=== PATIENT | female | born 2000 | race Caucasian/White ===

== ENCOUNTER → 2023-12-12 10:46 | Outpatient (BNVA) | payer MEDICAID, SELFPAY | PROVIDERS: Family Provider Nurse Practitioner Family; PCP Nurse Practitioner Family; Visit Provider Obstetrics & Gynecology | DX: Z36.87 Encounter for antenatal screening for uncertain dates (principal) | CPT/HCPCS: 76817 ==

== ENCOUNTER 2023-12-15 11:34 | Outpatient (CLI) | payer MEDICAID, SELFPAY ==
--- NOTE | 2023-12-15 11:40 | US_ITS ---
WS: [id number] EARLY OBSTETRICAL ULTRASOUND (<14 WEEKS). HISTORY: Z34.01 - Encounter for supervision of normal first pregna... COMPARISON: None available. Single intrauterine gestational sac is identified. Cardiac activity at 161 BPM. [place]-rump length chavez sures 1.7 cm which corresponds to a gestation of 8w1d. Normal-appearing yolk sac and amnion demonstra ramsey. Small subchorionic hemorrhage. Small subchronic hemorrhage along the lower uterine segment measu res 0.8 x 1.1 x 0.9 cm. Trace free fluid. Normal size ovaries with no mass. IMPRESSION: 1. Single intrauterine gestation of 8w1d with an EDC of 07/25/2024. 2. Normal cardiac activity.
== END 2023-12-15 11:35 | disposition home or self-care (01) ==
LOC: RAD 11:35
PROVIDERS: Family Provider Nurse Practitioner Family; PCP Nurse Practitioner Family; Visit Provider Obstetrics & Gynecology
DX: Z34.01 Encounter for supervision of normal first pregnancy, first trimester (principal)
CPT/HCPCS: 76817; 80307; 84315; 85025; 86592; 86762; 86787; 86803; 86850; 86900; 87086; 87340; 87806

== ENCOUNTER → 2023-12-29 08:11 | Outpatient (BNVA) | payer MEDICAID, SELFPAY | PROVIDERS: Family Provider Nurse Practitioner Family; PCP Nurse Practitioner Family; Visit Provider Obstetrics & Gynecology | DX: Z34.01 Encounter for supervision of normal first pregnancy, first trimester (principal) | CPT/HCPCS: 84315; 87491; 87591; 88175 ==

== ENCOUNTER → 2024-02-16 07:53 | Outpatient (BNVA) | payer BC, MEDICAID, SELFPAY | PROVIDERS: Family Provider Nurse Practitioner Family; PCP Nurse Practitioner Family; Visit Provider Nurse Practitioner Women's Health | DX: Z34.01 Encounter for supervision of normal first pregnancy, first trimester (principal) | CPT/HCPCS: 82105; 84315 ==

== ENCOUNTER → 2024-04-05 15:08 | Outpatient (BNVA) | payer BC, MEDICAID, SELFPAY | PROVIDERS: Family Provider Nurse Practitioner Family; PCP Nurse Practitioner Family; Visit Provider Nurse Practitioner Women's Health | DX: Z34.01 Encounter for supervision of normal first pregnancy, first trimester (principal) | CPT/HCPCS: 82950; 84315 ==

== ENCOUNTER 2024-04-21 16:23 | Outpatient (CLI) | payer BC, MEDICAID, SELFPAY ==
[2024-04-21 16:23] VITALS: BMI 29.8
[2024-04-21 16:42] VITALS: PULSE 90; O2SAT 98
[2024-04-21 16:47] VITALS: BP 128/71; PULSE 81; O2SAT 99
[2024-04-21 16:52] VITALS: PULSE 87; O2SAT 89
[2024-04-21 17:02] VITALS: BP 119/72; PULSE 76
== END 2024-04-21 17:20 | disposition home or self-care (01) ==
LOC: OPOB 16:27 → OBGYN 16:28
PROVIDERS: Family Provider Nurse Practitioner Family; PCP Nurse Practitioner Family; Visit Provider Obstetrics & Gynecology
DX: O36.8190 Decreased fetal movements, unspecified trimester, not applicable or unspecified (principal); Z3A.00 Weeks of gestation of pregnancy not specified
CPT/HCPCS: 99211

== ENCOUNTER 2024-05-01 07:14 | Inpatient (IN) | payer BC, MEDICAID, SELFPAY ==
[2024-05-01] VITALS (36 sets, daily range): BP systolic 102–126; BP diastolic 55–85; PULSE 70–92; RESP 15–18; TEMP 36.8–37.3; O2SAT 99
[2024-05-01] MEDS: lactated ringers 1,000 ML 999 ML IV (04:45)
--- NOTE | 2024-05-01 04:58 | PM.PN ---
Subjective Subjective: Anesthesia called at 0434 for STAT Section Arrived at [address] Rice elected for a vaginal delivery given circumstances. Vitals/I&O/Wt Last Vital Signs Pulse 87 05/01/24 04:23 BP 119/85 05/01/24 04:23 Attestations Medical Necessity Statement*: n/a Coding Level of Care Code Acute Code for Chg Fwd
[2024-05-01 05:05] LABS: Basophils % 0.4 %; Eosinophils # 0.2 10^3/uL (0.0-0.8); Eosinophils % 1.7 %; Hematocrit 37.5 % (36-47); Lymphocytes # 2.1 10^3/uL (0.8-4.8); Lymphocytes % 19.5 %; Mean Corpuscular HGB Conc 33.9 g/dL (30-55); Mean Corpuscular Hemoglobin 29.6 pg (27-33); Mean Corpuscular Volume 87.4 fl (85-98); Monocytes # 0.7 10^3/uL (0.2-0.9); Monocytes % 6.8 %; Neutrophils # 7.53 10^3/uL (1.8-7.7); Neutrophils % 71.4 %; Nucleated Red Blood Cells % 0 %; Platelet Count 198 10^3/cmm (157-399); Red Blood Count 4.29 10^6/uL (3.85-5.65); Red Cell Distribution Width 11.8 % (12.1-15.1); White Blood Count 10.55 10^3/uL (3.29-11.43)
--- NOTE | 2024-05-01 05:41 | P.HP_ITS ---
Providers/Chief Complaint 2 Admitting Physician: Kishor Rice MD Primary VICE PRESIDENT EDUCATION: Trung Ac MD Primary Care Provider: EDITH Marquez Chief Complaint: Premature ROM HPI VICE PRESIDENT EDUCATION History of Present Illness 23 y.o. 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 this morning, woke patient from sleep + moderate uterine contractions No bleeding Medications/Allergies Home Medications Medication Instructions Recorded Confirmed Last Taken Type PNV 153-FA 400 mcg-om3 35 mg-dha tab PO 11/21/23 04/05/24 Unknown History 25 mg-epa 5 mg-fish oil chew tablet ( Gummies) dihydroxyaluminum sodium carb 334 334 mg PO DAILY 04/05/24 04/05/24 Unknown History mg chewable tablet famotidine 20 mg tablet (Pepcid) 20 mg PO BID #60 tabs 04/05/24 04/05/24 Unknown Rx Allergies Allergy/AdvReac Type Severity Reaction Status Date / Time Penicillins Allergy Mild ALGY-Hives Verified 04/05/24 14:16 PFSH VICE PRESIDENT EDUCATION 2 PFSH: Medical History No pertinent past medical history neghx:htn,dm,thyroid,dvt/pe PCP: Tessa Gonsalves Surgical History No pertinent past surgical history Family History Mother Diabetes uncertain if T1 orT2 Father Hypertension Denies family history of Colon cancer Ovarian cancer Prostate cancer Heart disease Hyperlipidemia Breast cancer Uterine cancer Thyroid disease Stroke Social History Smoking and tobacco/nicotine status: never used tobacco/nicotine History History History 2 1 Term 0 Miscarriages/Ectopic Living Children Care MARLENY Calculator 2 Estimated Delivery Date Method Current WG Current Estimate 07/23/24 Ultrasound #1 28w 1d Other Estimates 07/09/24 LMP (Certain) 30w 1d Specific Issues/Plans * TRISOMY 18 ON NIPT-- mfm saw her; amnio confirms * MULTIPLE ANOMALIES WITH ONTD POSITIVE * MARLENY CHANGE BASED ON 8 WEEK SONO * LGSIL; repap at PP Vitals/I&O/Wt Last Vital Signs Pulse 82 05/01/24 05:31 BP 123/84 05/01/24 05:26 Pulse Ox 99 05/01/24 05:31 Physical Exam 2 Narrative: General: comfortable, awake, alert, appropriate Abd: soft, nontender Perineum: gross clear amniotic fluid seen Cervix: 1-2 cm / high station Bedside sono by me: heart rate 20-40 per minute Minimal amniotic fluid Data 05/01/24 04:40 Results Labs OB ([facility]): 2 Blood Type O Positive 05/01/24 Antibody Screen Negative 05/01/24 Hct 37.5 % (36-47) 05/01/24 Hgb 12.70 g/dL (11.27-16.99) 05/01/24 Rho(D) Type Rh positive 05/01/24 Plt Count 198 10^3/cmm (157-399) 05/01/24 Hep Bs Antigen Non-reactive (Nonreactive) 12/15/23 Hepatitis C Antibody Non-reactive (Nonreactive) 12/15/23 Rubella IgG Antibody 267.5 IU/mL (0.0-10.0) H 12/15/23 RPR Nonreactive (Nonreactive) 12/15/23 HIV 1&2 Ab & HIV 1 Ag Non-reactive (Non-Reactiv) 12/15/23 C.trachomatis RNA (TMA) Not detected (NOT DETECTED) N.gonorrhoeae RNA (TMA) Not detected (NOT DETECTED) T. vaginalis Amp RNA Not detected (NOT DETECTED) 12/29/23 Chlamydia/GC Comment See note 12/29/23 Glucose 1 Hr 50 gm 75 mg/dL (85-140) L 04/05/24 VZV IgG Antibody 526.00 index 12/15/23 HCG, Qual Positive (Negative) H 11/21/23 Urine Opiates Screen Negative ng/mL (Negative) 12/15/23 Ur Barbiturates Screen Negative ng/mL (Negative) 12/15/23 Ur Phencyclidine Scrn Negative ng/mL (Negative) 12/15/23 Ur Amphetamines Screen Negative ng/mL (Negative) 12/15/23 U Benzodiazepines Scrn Negative ng/mL (Negative) 12/15/23 Urine Cocaine Screen Negative ng/mL (Negative) 12/15/23 U Marijuana (THC) Screen Negative ng/mL (Negative) 12/15/23 Micro Urine Specimen 12/15/23 Pap Smear Interpret See note A 12/29/23 A&P Assessment and plan (1) Chromosomal abnormality in fetus affecting care of mother: 28 w 1 d Fetus with trisomy 18 and multiple anomalies not compatible with life Spontaneous rupture of membranes Severe oligohydramnios Discussed with patient that fetus is not expected to survive in utero and chances of survival after delivery is close to zero Discussed options of delivery vs. non-intervention to allow natural of fetus Explained that even with delivery, baby is not expected to survive outside the Uterus Explained that allowing natural will mean induction of labor with vaginal delivery Patient and her do not want delivery They opted for allowing natural of fetus with induction of labor They inquired about epidural anesthesia for labor Plan is to not perform delivery Will admit Will not monitor fetus Will periodically assess for heart motion Plan labor induction if there no longer heart activity Qualifiers: Fetus number: single or unspecified fetus Qualified Code(s): O35.10X0 - Maternal care for (suspected) chromosomal abnormality in fetus, unspecified, not applicable or unspecified Attestations 2 Medical Necessity Statement*: patient at 28 weeks, fetus with multiple anomalies, presented with spontaneous rupture of membranes Coding Level of Care Code Acute Code for Chg Fwd Diagnoses Chromosomal abnormality in fetus affecting management of mother, single or unspecified fetus O35.10X0 Fetus number: single or unspecified fetus Time Spent (min) 90
--- NOTE | 2024-05-01 07:32 | PC.NURSE ---
This nurse walked into pt room at 0700 to get bedside shift report. Pt was noted to be up to bathroom. This nurse educated pt if she felt like she needed to poop or any pressure in her vagina or bottom, then to press her call light and wait for this nurse to come into room before going to the restroom.
--- NOTE | 2024-05-01 08:10 | P.PN_ITS ---
HUMAN RESOURCES SERVICES SPECIALIST Subjective 2 Subjective: Interval history: Bedside sono by me: no heart motion Finding discussed with patient Patient wants induction of labor Plan IOL with cytotec Labor: Amniotic Membrane Status: Ruptured Vitals/I&O/Wt Last Vital Signs Temp 98.5 F 05/01/24 06:41 Pulse 76 05/01/24 11:47 Resp 18 05/01/24 06:41 BP 116/70 05/01/24 11:47 Pulse Ox 99 05/01/24 05:31 O2 Del Method Room Air 05/01/24 06:41 04/30/24 05/01/24 05/01/24 22:59 06:59 14:59 Intake Total 499.5 / 499.5 Balance 499.5 / 499.5 Weight last 48 hrs Weight 175 lb Data 05/01/24 04:40 Attestations 2 Medical Necessity Statement*: Patient at 28 weeks; fetus with multiple anomalies not compatible with life; now with intrauterine demise Coding Level of Care Code Acute Code for Chg Fwd Time Spent (min) 30
[2024-05-01] MEDS: miSOPROStol 100 mcg tablet VAGINAL ×3 (08:52→14:32)
[2024-05-01] MEDS: fentaNYL 50 mcg/mL INJ 2mL IVP ×5 (12:18→22:44)
--- NOTE | 2024-05-01 23:10 | P.PN_ITS ---
UNIFORM ROOM ATTENDANT Subjective 2 Subjective: Interval history: DELIVERY NOTE , nonviable fetus with multiple gross anatomic anomalies Placenta delivered complete and intact No lacerations EBL: 50 cc No complications Labor: Station: +3 Amniotic Membrane Status: Ruptured Vitals/I&O/Wt Last Vital Signs Temp 98.8 F 05/01/24 23:56 Pulse 80 05/02/24 00:59 Resp 18 05/01/24 19:27 BP 124/77 05/02/24 00:59 Pulse Ox 99 05/01/24 05:31 O2 Del Method Room Air 05/01/24 06:41 Weight last 48 hrs Weight 175 lb Data 05/01/24 04:40 Attestations 2 Medical Necessity Statement*: Patient at 28 weeks; fetus with multiple anomalies not compatible with life; now with intrauterine demise; s/p vaginal delivery Coding Level of Care Code Acute Code for Chg Fwd Time Spent (min) 60
--- NOTE | 2024-05-01 23:15 | PM.DELIVERY ---
Delivery Note: Date of delivery: May 01, 2024 Pre-delivery diagnoses: 28 weeks gestation fetus with trisomy 18 and multiple anomalies not compatible with life spontaneous rupture of membranes spontaneous intrauterine demise Post-delivery diagnoses: 28 weeks gestation fetus with trisomy 18 and multiple anomalies not compatible with life spontaneous rupture of membranes spontaneous intrauterine demise induction of labor vaginal delivery of nonviable fetus with multiple gross anomalies Procedure: induction of labor vaginal delivery Delivering Physician: Kishor Rice MD Estimated blood loss (mL): 50 Findings: , nonviable fetus with multiple gross anatomic anomalies Placenta delivered complete and intact No lacerations EBL: 50 cc No complications Post Delivery Diagnoses: neural tube defect affecting : Qualifiers: Fetus number: single or unspecified fetus Qualified Code(s): O35.00X0 - Maternal care for (suspected) central nervous system malformation or damage in fetus, unspecified, not applicable or unspecified Chromosomal abnormality in fetus affecting care of mother: Qualifiers: Fetus number: single or unspecified fetus Qualified Code(s): O35.10X0 - Maternal care for (suspected) chromosomal abnormality in fetus, unspecified, not applicable or unspecified Delivery: vaginal Post-Delivery Status: good History History History 1 Term 0 Miscarriages/Ectopic Living Children A&P Assessment and plan (1) neural tube defect affecting : Qualifiers: Fetus number: single or unspecified fetus Qualified Code(s): O35.00X0 - Maternal care for (suspected) central nervous system malformation or damage in fetus, unspecified, not applicable or unspecified (2) Chromosomal abnormality in fetus affecting care of mother: Qualifiers: Fetus number: single or unspecified fetus Qualified Code(s): O35.10X0 - Maternal care for (suspected) chromosomal abnormality in fetus, unspecified, not applicable or unspecified Coding Level of Care Code Acute Code for Chg Fwd Diagnoses neural tube defect affecting , single or unspecified fetus O35.00X0 Fetus number: single or unspecified fetus Chromosomal abnormality in fetus affecting management of mother, single or unspecified fetus O35.10X0 Fetus number: single or unspecified fetus Time Spent (min) 20
[2024-05-02] VITALS (19 sets, daily range): BP systolic 106–144; BP diastolic 56–91; PULSE 67–90; RESP 16; TEMP 36.1–36.6
[2024-05-02] MEDS: carboprost tromethamine 250 mcg/mL Amp IM (00:03)
[2024-05-02] MEDS: ibuprofen 800 mg tablet PO ×2 (00:41→09:30)
[2024-05-02] MEDS: HYDROcodone-acetaminophen 5-325 mg Tablet PO ×2 (00:41→13:07)
--- NOTE | 2024-05-02 05:45 | PC.NURSE ---
Patient stated that she wanted to donate the body of baby to science. pond supervisor made aware of this and gave some resources to the patient. Upon further research, body donation to science is set up by the family and there is some pre-planning required by the family. This new information was shared with the patient and family, they all verbalized understanding. [facility] was notified via dye house wheel operator and they did not provide any resources for this matter. The dye house wheel operator did share some other options with patient about body disposition and also let it be known a decision did not have to be made right now and the [place] can [place] [facility] [place]. The baby's body remained at bedside at this time.
--- NOTE | 2024-05-02 06:45 | PC.NURSE ---
Patient stated she was ready for the baby's body to go to the [facility]. The baby was removed from the room, in the bassinet with the cuddle cot and taken to the nursery and placed in the demise casket with ice. The house calls nurse was requested [place] [facility] [place]
[2024-05-02] MEDS: PRENATAL VIT NO.130/IRON/FOLIC 1 EACH TABLET PO (09:30)
[2024-05-02] MEDS: docusate sodium 100 mg Capsule PO (09:30)
[2024-05-02 11:01] LABS: Hematocrit 38.9 % (36-47); Mean Corpuscular HGB Conc 33.9 g/dL (30-55); Mean Corpuscular Hemoglobin 29.4 pg (27-33); Mean Corpuscular Volume 86.6 fl (85-98); Mean Platelet Volume 11.9 fL (7.4-10.4); Platelet Count 195 10^3/cmm (157-399); Red Blood Count 4.49 10^6/uL (3.85-5.65); Red Cell Distribution Width 11.7 % (12.1-15.1); White Blood Count 14.04 10^3/uL (3.29-11.43)
== END 2024-05-02 13:30 | disposition home or self-care (01) | DRG 806 ==
LOC: OPOB 07:15 → OBGYN 07:15
PROVIDERS: Admitting Provider Obstetrics & Gynecology; Family Provider Nurse Practitioner Family; PCP Nurse Practitioner Family; Visit Provider Obstetrics & Gynecology
DX: O35.10X0 Maternal care for (suspected) chromosomal abnormality in fetus, unspecified, not applicable or unspecified (principal); O36.4XX0 Maternal care for intrauterine death, not applicable or unspecified; Z37.1 Single stillbirth; O41.03X0 Oligohydramnios, third trimester, not applicable or unspecified; Z3A.28 28 weeks gestation of pregnancy; O35.00X0 Maternal care for (suspected) central nervous system malformation or damage in fetus, unspecified, not applicable or unspecified
CPT/HCPCS: 36415; 59025; 59409; 83986; 85025; 85027; 86850; 86900; 96372; 99211; J3010; J7120

== ENCOUNTER → 2024-07-12 08:35 | Outpatient (BNVA) | payer BC, MEDICAID, SELFPAY | PROVIDERS: Family Provider Nurse Practitioner Family; PCP Nurse Practitioner Family; Visit Provider Nurse Practitioner Women's Health | DX: N92.6 Irregular menstruation, unspecified (principal) | CPT/HCPCS: 84702 ==

== ENCOUNTER → 2024-07-17 13:25 | Outpatient (BNVA) | payer BC, MEDICAID, SELFPAY | PROVIDERS: Family Provider Nurse Practitioner Family; PCP Nurse Practitioner Family; Visit Provider Obstetrics & Gynecology | DX: Z36.87 Encounter for antenatal screening for uncertain dates (principal); Z3A.01 Less than 8 weeks gestation of pregnancy | CPT/HCPCS: 76817 ==

== ENCOUNTER → 2024-07-31 15:22 | Outpatient (BNVA) | payer BC, MEDICAID, SELFPAY | PROVIDERS: Family Provider Nurse Practitioner Family; PCP Nurse Practitioner Family; Visit Provider Nurse Practitioner Women's Health | DX: Z36.87 Encounter for antenatal screening for uncertain dates (principal); Z3A.01 Less than 8 weeks gestation of pregnancy | CPT/HCPCS: 76801 ==

== ENCOUNTER → 2024-08-20 13:54 | Outpatient (BNVA) | payer BC, MEDICAID, SELFPAY | PROVIDERS: Family Provider Nurse Practitioner Family; PCP Nurse Practitioner Family; Visit Provider Nurse Practitioner Women's Health | DX: O09.899 Supervision of other high risk pregnancies, unspecified trimester (principal); O09.299 Supervision of pregnancy with other poor reproductive or obstetric history, unspecified trimester; R87.612 Low grade squamous intraepithelial lesion on cytologic smear of cervix (LGSIL); Z87.59 Personal history of other complications of pregnancy, childbirth and the puerperium; L73.9 Follicular disorder, unspecified | CPT/HCPCS: 80307; 84315; 85025; 86592; 86762; 86803; 86850; 86900; 87086; 87340; 87806 ==

== ENCOUNTER → 2024-09-13 10:01 | Outpatient (BNVA) | payer BC, MEDICAID, SELFPAY | PROVIDERS: Family Provider Nurse Practitioner Family; PCP Nurse Practitioner Family; Visit Provider Obstetrics & Gynecology | DX: O09.899 Supervision of other high risk pregnancies, unspecified trimester (principal) | CPT/HCPCS: 84315; 87491; 87591; 87661 ==

== ENCOUNTER → 2024-10-31 09:09 | Outpatient (BNVA) | payer BC, MEDICAID, SELFPAY | PROVIDERS: Family Provider Nurse Practitioner Family; PCP Nurse Practitioner Family; Visit Provider Obstetrics & Gynecology | DX: O09.899 Supervision of other high risk pregnancies, unspecified trimester (principal) | CPT/HCPCS: 76805 ==

== ENCOUNTER → 2024-11-07 12:38 | Outpatient (BNVA) | payer BC, MEDICAID, SELFPAY | PROVIDERS: Family Provider Nurse Practitioner Family; PCP Nurse Practitioner Family; Visit Provider Obstetrics & Gynecology | DX: Z87.59 Personal history of other complications of pregnancy, childbirth and the puerperium (principal); L73.9 Follicular disorder, unspecified; O09.299 Supervision of pregnancy with other poor reproductive or obstetric history, unspecified trimester; O09.899 Supervision of other high risk pregnancies, unspecified trimester; R87.612 Low grade squamous intraepithelial lesion on cytologic smear of cervix (LGSIL) | CPT/HCPCS: 84315 ==

== ENCOUNTER → 2024-11-29 10:12 | Outpatient (BNVA) | payer BC, MEDICAID, SELFPAY | PROVIDERS: Family Provider Nurse Practitioner Family; PCP Nurse Practitioner Family; Visit Provider Nurse Practitioner Women's Health | DX: Z87.59 Personal history of other complications of pregnancy, childbirth and the puerperium (principal); O09.899 Supervision of other high risk pregnancies, unspecified trimester; L73.9 Follicular disorder, unspecified; O09.299 Supervision of pregnancy with other poor reproductive or obstetric history, unspecified trimester; R87.612 Low grade squamous intraepithelial lesion on cytologic smear of cervix (LGSIL) | CPT/HCPCS: 82950; 84315 ==

== ENCOUNTER → 2024-12-26 13:27 | Outpatient (BNVA) | payer BC, MEDICAID, SELFPAY | PROVIDERS: Family Provider Nurse Practitioner Family; PCP Nurse Practitioner Family; Visit Provider Obstetrics & Gynecology | DX: O09.899 Supervision of other high risk pregnancies, unspecified trimester (principal) | CPT/HCPCS: 76816; 84315; 85025 ==

== ENCOUNTER → 2025-01-10 09:54 | Outpatient (BNVA) | payer BC, MEDICAID, SELFPAY | PROVIDERS: Family Provider Nurse Practitioner Family; PCP Nurse Practitioner Family; Visit Provider Nurse Practitioner Women's Health | DX: O09.899 Supervision of other high risk pregnancies, unspecified trimester (principal); O99.019 Anemia complicating pregnancy, unspecified trimester; R87.612 Low grade squamous intraepithelial lesion on cytologic smear of cervix (LGSIL); O09.299 Supervision of pregnancy with other poor reproductive or obstetric history, unspecified trimester; Z87.59 Personal history of other complications of pregnancy, childbirth and the puerperium; O36.63X0 Maternal care for excessive fetal growth, third trimester, not applicable or unspecified; K21.9 Gastro-esophageal reflux disease without esophagitis; O99.013 Anemia complicating pregnancy, third trimester | CPT/HCPCS: 84315; 87624 ==

== ENCOUNTER → 2025-01-23 08:21 | Outpatient (BNVA) | payer BC, MEDICAID, SELFPAY | PROVIDERS: Family Provider Nurse Practitioner Family; PCP Nurse Practitioner Family; Visit Provider Nurse Practitioner Women's Health | DX: O09.899 Supervision of other high risk pregnancies, unspecified trimester (principal) | CPT/HCPCS: 76816; 84315 ==

== ENCOUNTER → 2025-02-07 13:45 | Outpatient (BNVA) | payer BC, MEDICAID, SELFPAY | PROVIDERS: Family Provider Nurse Practitioner Family; PCP Nurse Practitioner Family; Visit Provider Nurse Practitioner Women's Health | DX: O09.899 Supervision of other high risk pregnancies, unspecified trimester (principal); O99.013 Anemia complicating pregnancy, third trimester; O09.299 Supervision of pregnancy with other poor reproductive or obstetric history, unspecified trimester; Z87.59 Personal history of other complications of pregnancy, childbirth and the puerperium; R87.612 Low grade squamous intraepithelial lesion on cytologic smear of cervix (LGSIL); O36.63X0 Maternal care for excessive fetal growth, third trimester, not applicable or unspecified; K21.9 Gastro-esophageal reflux disease without esophagitis | CPT/HCPCS: 84315; 85025 ==

== ENCOUNTER → 2025-02-19 12:28 | Outpatient (BNVA) | payer BC, MEDICAID, SELFPAY | PROVIDERS: Family Provider Nurse Practitioner Family; PCP Nurse Practitioner Family; Visit Provider Nurse Practitioner Women's Health | DX: O09.899 Supervision of other high risk pregnancies, unspecified trimester (principal); Z36.9 Encounter for antenatal screening, unspecified | CPT/HCPCS: 76816; 84315; 87081 ==

== ENCOUNTER → 2025-02-27 07:50 | Outpatient (BNVA) | payer BC, MEDICAID, SELFPAY | PROVIDERS: Family Provider Nurse Practitioner Family; PCP Nurse Practitioner Family; Visit Provider Obstetrics & Gynecology | DX: O09.899 Supervision of other high risk pregnancies, unspecified trimester (principal) | CPT/HCPCS: 84315 ==

== ENCOUNTER → 2025-03-05 10:26 | Outpatient (BNVA) | payer BC, MEDICAID, SELFPAY | PROVIDERS: Family Provider Nurse Practitioner Family; PCP Nurse Practitioner Family; Visit Provider Nurse Practitioner Women's Health | DX: O09.899 Supervision of other high risk pregnancies, unspecified trimester (principal) | CPT/HCPCS: 84315 ==

== ENCOUNTER 2025-03-13 00:05 | Inpatient (IN) | payer BC, MEDICAID, SELFPAY ==
[2025-03-12] VITALS (7 sets, daily range): BP systolic 118–150; BP diastolic 67–92; PULSE 82–100; BMI 35.3
[2025-03-13] VITALS (110 sets, daily range): BP systolic 104–138; BP diastolic 51–85; PULSE 74–157; RESP 15–18; TEMP 35.5–36.7; O2SAT 97–100
[2025-03-13 00:33] LABS: Basophils % 0.2 %; Eosinophils # 0.2 10^3/uL (0.0-0.8); Eosinophils % 1.1 %; Hematocrit 41.7 % (36-47); Lymphocytes # 1.8 10^3/uL (0.8-4.8); Lymphocytes % 11.4 %; Mean Corpuscular HGB Conc 33.1 g/dL (30-55); Mean Corpuscular Hemoglobin 28.3 pg (27-33); Mean Corpuscular Volume 85.5 fl (85-98); Mean Platelet Volume 11.5 fL (7.4-10.4); Neutrophils # 12.86 10^3/uL (1.8-7.7); Nucleated Red Blood Cells % 0 %; Platelet Count 174 10^3/cmm (157-399); Red Blood Count 4.88 10^6/uL (3.85-5.65); Red Cell Distribution Width 17.7 % (12.1-15.1); White Blood Count 16.09 10^3/uL (3.29-11.43)
--- NOTE | 2025-03-13 00:45 | P.HP_ITS ---
Providers/Chief Complaint 2 Admitting Physician: Kishor Rice MD Primary Care Provider: EDITH Marquez Chief Complaint: CTX HPI CUSTOMER ACQUISITION MANAGER History of Present Illness Tc Rai is a 24 year old female L0 EDC March 16, 2025 At 39 w 4 d No complications Presents to L&D c/o painful uterine contractions No bleeding or fluid leakage + active movements POBHx: at 28 weeks of non-viable fetus with multiple anomalies 05-01-24 Present Details : 2 Para: 1 Labs Rubella: Immune RPR: Negative GBS: Negative Medications/Allergies Home Medications ?Medication ?Instructions ?Recorded ?Confirmed ?Last Taken ?Type PNV 153-FA 400 mcg-om3 35 mg-dha 400 tab PO DAILY 11/0903/05/25 Unknown History 25 mg-epa 5 mg-fish oil chew tablet ( Gummies) loratadine 10 mg tablet (Claritin) 10 mg PO DAILY 04/0103/05/25 Unknown History ferrous sulfate 325 mg (65 mg 325 mg PO BID #60 tabs 0 01/10/25 03/05/25 Unknown Rx iron) tablet omeprazole 40 mg capsule,delayed 40 mg PO DAILY #90 ca ps 01/10/25 03/05/25 Unknown Rx release hydrocortisone 2.5 % topical cream 1 applic [place] .qid pr n PRN 02/19/25 03/05/25 Unknown Rx with perineal applicator hemorrhoids #30 grams (Procto-Med HC) Allergies Allergy/AdvReac Type Severity Reaction Status Date / Time Penicillins Allergy Mild ALGY-Hives Verified 03/05/25 10:29 PFSH CUSTOMER ACQUISITION MANAGER 2 PFSH: Medical History neural tube defect affecting Chromosomal abnormality in fetus affecting care of mother No pertinent past medical history neghx:htn,dm,thyroid,dvt/pe PCP: Tessa Gonsalves Surgical History No pertinent past surgical history Family History Mother Diabetes uncertain if T1 orT2 Father Hypertension Denies family history of Colon cancer Ovarian cancer Prostate cancer Heart disease Hyperlipidemia Breast cancer Uterine cancer Thyroid disease Stroke Social History Smoking and tobacco/nicotine status: never used tobacco/nicotine History History History 2 2 Term 0 1 Miscarriages/Ectopic 0 Living Children 0 Care MARLENY Calculator 2 Estimated Delivery Date Method Current WG Current Estimate 03/16/25 LMP (Certain) 39w 5d Other Estimates 03/18/25 Ultrasound #1 39w 3d Specific Issues/Plans * PREVIOUS CHILD WITH TRISOMY 13,18--low risk NIPT * HX IUFD AT 24 WEEKS; secondary to anomaly * 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); repeat pap at 30 weeks performed * ANEMIA-at 28 weeks hemoglobin 10.3--started iron twice daily at 30 weeks; reassess at 34-36 weeks * GERD-no improvement with twice daily Pepcid; switch to omeprazole at 30 weeks Vitals/I&O/Wt Last Vital Signs Temp 98.1 F 03/13/25 21:30 Pulse 87 03/14/25 01:36 Resp 14 03/14/25 01:36 BP 148/70 03/14/25 01:36 Pulse Ox 97 03/14/25 01:36 O2 Del Method Room Air 03/14/25 01:36 03/13/25 03/13/25 03/14/25 14:59 22:59 06:59 Intake Total 691.667 / 040.397 0437.5 / 2236.167 Output Total 200 / 200 Balance 691.667 / 830.561 3493.5 / 2036.167 Weight last 48 hrs Weight 206 lb Physical Exam 2 Narrative: Weight 206 lbs; 5?4? VS normal General awake, alert Lungs: clear Cor: RRR Abd: nontender Cervix: 2-3 cm / 75% / -3 / cephalic Ext: no edema External monitor: regular uterine contractions heart tracing good variability, + accelerations Urinary Catheter Management: [place] Latex: Cath Placed During This Visit: yes, but has since been removed by the nurse Reason for Continuing Indwelling Catheter: Other Urinary Catheter Date of Insertion: 03/13/25 Urinary Catheter Time of Insertion: 07:45 Date Urinary Catheter Removed: 03/13/25 Time Urinary Catheter Discontinued: 17:25 Data 03/13/25 00:22 Results Labs OB ([facility]): 2 Obstetrics US 02/19/25 Blood Type O Positive 03/13/25 Antibody Screen Negative 03/13/25 Hct, (36-47) 41.7 % 03/13/25 Hgb, (11.27-16.99) 13.80 g/dL 03/13/25 Rho(D) Type Rh positive 03/13/25 Plt Count, (157-399) 174 10^3/cmm 03/13/25 Hep Bs Antigen, (Nonreactive) Non-reactive 08/20/24 Hepatitis C Antibody, (Nonreactive) Non-reactive 08/09 12/02 Rubella IgG Antibody, (0.0-10.0) 261.1 IU/mL H 4 RPR, (Nonreactive) Nonreactive 08/20/24 HIV 1&2 Ab & HIV 1 Ag, (Non-Reactiv) Non-reactive 10/01 C.trachomatis RNA (TMA), (NOT DETECTED) Not detected 12/29/23 N.gonorrhoeae RNA (TMA), (NOT DETECTED) Not detected 12/29/23 T. vaginalis Amp RNA, (NOT DETECTED) Not detected Chlamydia/GC Comment See note 12/29/23 Glucose 1 Hr 50 gm, (85-140) 81 mg/dL L 11/29/24 VZV IgG Antibody 526.00 index 12/15/23 Ser , Semi-Qnt 3203.00 mIU/mL 07/12/24 HCG, Qual, (Negative) Positive H 11/21/23 Urine Opiates Screen, (Negative) Negative ng/mL 4 Ur Barbiturates Screen, (Negative) Negative ng/mL 08/20 Ur Phencyclidine Scrn, (Negative) Negative ng/mL Ur Amphetamines Screen, (Negative) Negative ng/mL 08/20 U Benzodiazepines Scrn, (Negative) Negative ng/mL 08/20 Urine Cocaine Screen, (Negative) Negative ng/mL 4 U Marijuana (THC) Screen, (Negative) Negative ng/mL 10/01 Micro Urine Specimen 08/20/24 Pap Smear Interpret See note A 01/10/25 A&P Assessment and plan (1) Active labor at term: 39 w 4 d Painful uterine contractions Fetus reassuring Plan admit Labor management Plan Pitocin augmentation if needed PDMP PDMP Reviewed: Not Reviewed Attestations 2 Medical Necessity Statement*: patient at 39 w 4 d with active labor Coding Level of Care Code Acute Code for Chg Fwd Diagnoses Active labor at term
[2025-03-13] MEDS: oxytocin 30 UNIT/500 ML BAG IV (02:47)
[2025-03-13] MEDS: fentaNYL 50 mcg/mL INJ 2mL IVP ×2 (02:47→04:42)
[2025-03-13] MEDS: dextrose 5%-lactated ringers 1,000 ML 125 ML IV ×2 (03:23→10:58)
[2025-03-13] MEDS: lactated ringers 1,000 ML 999 ML IV (04:44)
--- NOTE | 2025-03-13 06:51 | P.ANESASSM_ITS ---
Pre-Anesthetic Assessment Height/Weight: Height 1.63 m Weight 93.44 kg Temp Pulse Resp BP Pulse Ox O2 Del Method 96.1 F L 91 16 113/59 99 Room Air 03/13/25 00:47 03/13/25 06:44 03/13/25 04:42 03/13/25 05:05 03/13/25 06:44 03/13/25 00:19 Preop Diagnosis: intrauterine labor epidural Familial anesthetic complications: none Was Beta Jose taken within 24 hours: N/A Was Clonidine taken within 24 hours: N/A Social No alcohol and No tobacco Exam alert, oriented x 3 and clear to auscultation bilaterally Airway Mallampati: Class III Dentition: full History/ROS No significant history except as noted Pulmonary None reported CV/HEM None reported None reported Hepatic None reported GI Gastroesophageal Reflux Disease Metabolic None reported Musc/skel None reported Neuropsych None reported Anesthetic Plan ASA status: 2 Anesthesia: Anesthesia Evaluation and Regional (specify below) Medications/Allergies Home Medications ?Medication ?Instructions ?Recorded ?Confirmed ?Last Taken ?Type PNV 153-FA 400 mcg-om3 35 mg-dha 400 tab PO DAILY 11/0903/05/25 Unknown History 25 mg-epa 5 mg-fish oil chew tablet ( Gummies) loratadine 10 mg tablet (Claritin) 10 mg PO DAILY 04/0103/05/25 Unknown History ferrous sulfate 325 mg (65 mg 325 mg PO BID #60 tabs 0 01/10/25 03/05/25 Unknown Rx iron) tablet omeprazole 40 mg capsule,delayed 40 mg PO DAILY #90 ca ps 01/10/25 03/05/25 Unknown Rx release hydrocortisone 2.5 % topical cream 1 applic [place] .qid pr n PRN 02/19/25 03/05/25 Unknown Rx with perineal applicator hemorrhoids #30 grams (Procto-Med HC) Allergies Allergy/AdvReac Type Severity Reaction Status Date / Time Penicillins Allergy Mild ALGY-Hives Verified 03/05/25 10:29 Current Medications Generic Name Dose Route Start Last Admin Trade Name Freq PRN Reason Stop Dose Admin Fentanyl 25 - 100 mcg 03/13/25 02:12 03/13/25 04:42 Fentanyl 50 Mcg/Ml Inj 2ml IVP 50 mcg Q1H PRN Administration SEVERE PAIN Dextrose/Lactated Ringer's 1,000 mls @ 125 mls/hr 03/13/25 00:15 03/13/25 05:50 Dextrose 5%-Lactated Ringers IV 125 mls/hr .Q8H CECILY Infusion Lactated Ringer's 1,000 mls @ 999 mls/hr 03/13/25 00:27 03/13/25 05:50 Lactated Ringers IV Infused .Q1H1M PRN Infusion See label comments Oxytocin 30 unit in 500 mls @ 1 mls/hr 03/13/25 02:15 03/13/25 05:50 Pitocin IV 3 milliunit/min .Q24H CECILY 3 mls/hr Protocol Titration 1 MILLIUNIT/MIN PFSH Anesthesia Medical History neural tube defect affecting Chromosomal abnormality in fetus affecting care of mother No pertinent past medical history neghx:htn,dm,thyroid,dvt/pe PCP: Tessa Gonsalves Surgical History No pertinent past surgical history Family History Mother Diabetes uncertain if T1 orT2 Father Hypertension Denies family history of Colon cancer Ovarian cancer Prostate cancer Heart disease Hyperlipidemia Breast cancer Uterine cancer Thyroid disease Stroke Social History Smoking and tobacco/nicotine status: never used tobacco/nicotine Female Reproductive History : 2 Data Anesthesia 03/13/25 00:22 Short CBC 03/13/25 Range/Units 00:22 WBC 16.09 H (3.29-11.43) 10^3/uL Hgb 13.80 (11.27-16.99) g/dL Hct 41.7 (36-47) % MCV 85.5 (85-98) fl Plt Count 174 (157-399) 10^3/cmm Neut % (Auto) 80.0 % Neut # (Auto) 12.86 H (1.8-7.7) 10^3/uL Blood Bank 03/13/25 00:22 Blood Type O Positive Rho(D) Type Rh positive Antibody Screen Negative Anesthesia Procedures Epidural Time Out Performed: Yes Consents Signed: Procedure Consent Consent: requested by attending/covering physician, from patient, risks and benefits reviewed and patient agrees to proceed Lumbar Level: L4-L5 Epidural position: sitting Epidural procedure: sterile prep of area, 1% lidocaine to numb the area, 18 g needle, negative for paresthesia passed, neg for paresthesia, test dose given, 1.5% xylocaine 1:200k epi, 0.2% Ropivacaine bolus ml (5), placed PCEA, no systemic response, sterile dressing applied, L.U.D. no apparent complications and 0.2% Ropiavacaine @ mls/hr (10) Additional Comments: ANTONIETTA 6cm, catheter easily threaded to 5cm in the space. VS monitored throughout and remained stable. Pt educated on ABSEILING INSTRUCTOR and reports adequate analgesia with epidural
[2025-03-13] MEDS: alum-mag-hydroxide-sime 30 mL UDC PO (10:58)
[2025-03-13] MEDS: ROPivacaine syringe 100 MG/50 ML SYRINGE 10 MG EPIDURAL ×2 (11:00→14:58)
--- NOTE | 2025-03-13 18:35 | PM.DELIVERY ---
Delivery Note: Date of delivery: March 13, 2025 Pre-delivery diagnoses: 39 w 4 d painful uterine contractions Post-delivery diagnoses: 39 w 4 d active labor labor augmentation vacuum-assisted vaginal delivery repair of third-degree perineal laceration Procedure: labor augmentation vacuum-assisted vaginal delivery repair of third-degree perineal laceration Op report anesthesia: Epidural Delivering Physician: Kishor Rice MD Estimated blood loss (mL): 300 Findings: Patient complete head ORSAURA, +2 - +3 station Poor pushing efforts, + maternal exhaustion Vacuum applied Mild traction used through three uterine contractions Brought head to perineum Shoulders delivered easily Vigorous male infant Cord gases and blood obtained Normal placenta and cord No episiotomy Third-degree perineal laceration repaired in layers EBL: 300 cc No complications Pre-Delivery Course: normal labor course fetus reassuring throughout Delivery: vacuum-assisted vaginal delivery Post-Delivery Status: good History History History 2 Term 0 1 Miscarriages/Ectopic 0 Living Children 0 A&P Assessment and plan (1) Vaginal delivery: PDMP PDMP Reviewed: Not Reviewed Coding Level of Care Code Acute Code for Chg Fwd Diagnoses Vaginal delivery O80
[2025-03-13] MEDS: ibuprofen 800 mg tablet PO (20:43)
[2025-03-14 01:36] VITALS: BP 148/70; PULSE 87; RESP 14; O2SAT 97
[2025-03-14 05:31] VITALS: BP 115/76; PULSE 80; RESP 16; O2SAT 97
[2025-03-14] MEDS: HYDROcodone-acetaminophen 5-325 mg Tablet PO (06:25)
[2025-03-14 06:45] LABS: Hematocrit 38.2 % (36-47); Mean Corpuscular Hemoglobin 28.5 pg (27-33); Mean Corpuscular Volume 86.4 fl (85-98); Platelet Count 161 10^3/cmm (157-399); Red Blood Count 4.42 10^6/uL (3.85-5.65); Red Cell Distribution Width 18.1 % (12.1-15.1)
--- NOTE | 2025-03-14 08:05 | ANE.PACU2 ---
Inpatient post-anesthesia follow up: Airway intact: Yes Vital signs: Temperature 98.0 F Pulse Rate 94 Respiratory Rate 18 Blood Pressure 136/84 Pulse Oximetry 98 Oxygen Delivery Me thod Room Air Oxygen Flow Rate Fraction of Inspir ed Oxygen Hydration adequate: Yes Nausea and vomiting: No Pain level: 1 Mental status: Baseline Epidural Start/End: Epidural Start Date: 03/13/25 Epidural Start Time: 06:41 Epidural End Date: 03/13/25 Epidural End Time: 18:44
[2025-03-14] MEDS: docusate sodium 100 mg Capsule PO ×2 (08:56→15:02)
[2025-03-14] MEDS: calcium carbonate 500 mg Chew Tablet 1000 MG PO (08:56)
[2025-03-14] MEDS: ibuprofen 800 mg tablet PO ×3 (08:56→20:15)
[2025-03-14] MEDS: PRENATAL VIT NO.130/IRON/FOLIC 1 EACH TABLET PO (08:56)
[2025-03-14 11:30] VITALS: BP 120/70; PULSE 75; RESP 18; TEMP 36.4
--- NOTE | 2025-03-14 11:48 | PC.NURSE ---
TOOK OVER PATIENT CARE AROUND [id number] FROM THADDEUS ALARCON RN.
--- NOTE | 2025-03-14 13:05 | PM.OBGYPN ---
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 fundus firm Ext: no edema; nontender Urinary Catheter Management: Oakes Latex: Cath Placed During This Visit: yes, but has since been removed by the nurse Reason for Continuing Indwelling Catheter: Other Urinary Catheter Date of Insertion: 03/13/25 Urinary Catheter Time of Insertion: 07:45 Date Urinary Catheter Removed: 03/13/25 Time Urinary Catheter Discontinued: 17:25 Data 03/14/25 05:52 A&P Assessment and plan (1) Vaginal delivery: PPD #1 vacuum-assisted vaginal delivery, repair of third-degree perineal laceration doing well normal course continue care PDMP PDMP Reviewed: Not Reviewed Attestations Medical Necessity Statement*: patient s/p vaginal delivery, for care Coding Level of Care Code Acute Code for Chg Fwd Diagnoses Vaginal delivery O80
--- NOTE | 2025-03-14 13:49 | PC.NURSE ---
HELPED HER WITH LATCH, SHE IS DOING VERY GOOD JUST HAD TO DO A LITTLE READJUSTMENT.
[2025-03-14 17:00] VITALS: BP 121/79; PULSE 74; RESP 16; TEMP 36.3
[2025-03-14 20:17] VITALS: BP 115/79; PULSE 80; RESP 15; TEMP 36.4; O2SAT 98
[2025-03-15 06:07] VITALS: BP 126/66; PULSE 83; RESP 16; TEMP 36.6; O2SAT 98
[2025-03-15 07:34] VITALS: BP 126/84; PULSE 74; RESP 18; TEMP 36.5
[2025-03-15] MEDS: PRENATAL VIT NO.130/IRON/FOLIC 1 EACH TABLET PO (08:48)
[2025-03-15] MEDS: docusate sodium 100 mg Capsule PO (08:48)
[2025-03-15] MEDS: ibuprofen 800 mg tablet PO (08:48)
[2025-03-15 11:45] VITALS: BP 136/84; PULSE 94; RESP 18; TEMP 36.7
--- NOTE | 2025-03-15 12:54 | PM.OBGYDC ---
Discharge Providers ORTHOPHOTO TECH/DRAFTSMAN Date of Admission: 03/13/25 00:05 Date of Discharge: 03/15/25 Attending Provider at Admission: Kishor Rice MD Attending Provider at Discharge: Kishor Rice MD Consults: none Primary ORTHOPHOTO TECH/DRAFTSMAN: Kishor Rice MD Primary Care Provider: EDITH Marquez Diagnoses at Discharge Discharge Diagnosis (1) Vaginal delivery: Details from hospital stay: 24 y.o. L0 at 39 w 4 d no complications presented c/o painful uterine contractions cervix on admission was 3 cm patient received pitocin augmentation proceeded to complete dilatation fetus was reassuring throughout Vacuum-assisted vaginal delivery with repair of third-degree perineal laceration was performed patient did well had no complications patient was discharged to home on the second day Status: Acute Reason for Visit Reason for Visit: CTX Brief History: 24 y.o. L0 at 39 w 4 d no complications presented c/o painful uterine contractions Hospital Course Hospital Course 24 y.o. L0 at 39 w 4 d no complications presented c/o painful uterine contractions cervix on admission was 3 cm patient received pitocin augmentation proceeded to complete dilatation fetus was reassuring throughout Vacuum-assisted vaginal delivery with repair of third-degree perineal laceration was performed patient did well had no complications patient was discharged to home on the second day Information Peripartum Data: Infant Delivery Method: Vaginal Laceration description: Perineal - 3rd Degree Episiotomy description: None complications: none Physical Exam Narrative: afebrile, VS normal comfortable, awake, alert Lungs: clear Cor: RRR Abd: soft, nontender. fundus firm Ext: no edema; nontender Urinary Catheter Management: Oakes Latex: Cath Placed During This Visit: yes, but has since been removed by the nurse Reason for Continuing Indwelling Catheter: Other Urinary Catheter Date of Insertion: 03/13/25 Urinary Catheter Time of Insertion: 07:45 Date Urinary Catheter Removed: 03/13/25 Time Urinary Catheter Discontinued: 17:25 History History History 2 Term 0 1 Miscarriages/Ectopic 0 Living Children 0 Discharge Data Studies Completed and Pending Pending at discharge Category Date Time Status High Risk PP Hemorrhage Stat Lab 03/13/25 18:28 Received Laboratory Results WBC 19.80 10^3/uL (3.29-11.43) H 03/14/25 05:52 RBC 4.42 10^6/uL (3.85-5.65) 03/14/25 05:52 Hgb 12.60 g/dL (11.27-16.99) 03/14/25 05:52 Hct 38.2 % (36-47) 03/14/25 05:52 MCV 86.4 fl (85-98) 03/14/25 05:52 MCH 28.5 pg (27-33) 03/14/25 05:52 MCHC 33.0 g/dL (30-55) 03/14/25 05:52 RDW 18.1 % (12.1-15.1) H 03/14/25 05:52 Plt Count 161 10^3/cmm (157-399) 03/14/25 05:52 MPV 12.0 fL (7.4-10.4) H 03/14/25 05:52 Neut % (Auto) 80.0 % 03/13/25 00:22 Lymph % (Auto) 11.4 % 03/13/25 00:22 [place] % (Auto) 6.0 % 03/13/25 00:22 Eos % (Auto) 1.1 % 03/13/25 00:22 Baso % (Auto) 0.2 % 03/13/25 00:22 Neut # (Auto) 12.86 10^3/uL (1.8-7.7) H 03/13/25 00:22 Lymph # (Auto) 1.8 10^3/uL (0.8-4.8) 03/13/25 00:22 [place] # (Auto) 1.0 10^3/uL (0.2-0.9) H 03/13/25 00:22 Eos # (Auto) 0.2 10^3/uL (0.0-0.8) 03/13/25 00:22 Baso # (Auto) 0.0 10^3/uL (0.0-0.1) 03/13/25 00:22 Nucleated RBC % (auto) 0 % 03/13/25 00:22 Nucleated RBCs # 0.0 /100WBC 03/13/25 00:22 Blood Type O Positive 03/13/25 00:22 Rho(D) Type Rh positive 06/05/25 00:22 Antibody Screen Negative 03/13/25 00:22 Procedures Performed labor augmentation vacuum-assisted vaginal delivery repair of third-degree perineal laceration Vitals Last Vital Signs Temp 98.0 F 03/15/25 11:45 Pulse 94 03/15/25 11:45 Resp 18 03/15/25 11:45 BP 136/84 03/15/25 11:45 Pulse Ox 98 03/15/25 06:07 O2 Del Method Room Air 03/15/25 06:07 Results Labs OB ([facility]): Obstetrics US 02/19/25 Blood Type O Positive 03/13/25 Antibody Screen Negative 03/13/25 Hct, (36-47) 38.2 % 03/14/25 Hgb, (11.27-16.99) 12.60 g/dL 03/14/25 Rho(D) Type Rh positive 03/13/25 Plt Count, (157-399) 161 10^3/cmm 03/14/25 Hep Bs Antigen, (Nonreactive) Non-reactive 08/20/24 Hepatitis C Antibody, (Nonreactive) Non-reactive 08/20/24 Rubella IgG Antibody, (0.0-10.0) 261.1 IU/mL H 08/20/24 RPR, (Nonreactive) Nonreactive 08/20/24 HIV 1&2 Ab & HIV 1 Ag, (Non-Reactiv) Non-reactive 08/20/24 C.trachomatis RNA (TMA), (NOT DETECTED) Not detected 12/29/23 N.gonorrhoeae RNA (TMA), (NOT DETECTED) Not detected 12/29/23 T. vaginalis Amp RNA, (NOT DETECTED) Not detected 12/29/23 Chlamydia/GC Comment See note 12/29/23 Glucose 1 Hr 50 gm, (85-140) 81 mg/dL L 11/29/24 VZV IgG Antibody 526.00 index 12/15/23 Ser , Semi-Qnt 3203.00 mIU/mL 07/12/24 HCG, Qual, (Negative) Positive H 11/21/23 Urine Opiates Screen, (Negative) Negative ng/mL 08/20/24 Ur Barbiturates Screen, (Negative) Negative ng/mL 08/20/24 Ur Phencyclidine Scrn, (Negative) Negative ng/mL 08/20/24 Ur Amphetamines Screen, (Negative) Negative ng/mL 08/20/24 U Benzodiazepines Scrn, (Negative) Negative ng/mL 08/20/24 Urine Cocaine Screen, (Negative) Negative ng/mL 08/20/24 U Marijuana (THC) Screen, (Negative) Negative ng/mL 08/20/24 Micro Urine Specimen 08/20/24 Pap Smear Interpret See note A 01/10/25 Discharge Plan Discharge Patient Disposition: Home Condition: Stable Prescriptions: Continued loratadine [Claritin] 10 mg tablet 10 mg PO DAILY Gummies 400 mcg-35 mg- 25 mg-5 mg tablet,chewable 400 tab PO DAILY ferrous sulfate 325 mg (65 mg iron) tablet 325 mg PO BID Qty: 60 4RF omeprazole 40 mg capsule,delayed release(DR/EC) 40 mg PO DAILY Qty: 90 3RF hydrocortisone [Procto-Med HC] 2.5 % cream with perineal applicator 1 applic OR .qid prn PRN (Reason: hemorrhoids) Qty: 30 0RF Discharge Orders: Discharge Order (Routine); Ordered 03/15/25 Ordered By: Kishor Rice Referrals: Kishor Rice MD [Physician, ORTHOPHOTO TECH/DRAFTSMAN] - 04/24/25 2:00 pm Referral Note: FOLLOW UP APPOINTMENT WITH DR. RICE IS April AT 2PM. Discharge Diet: Usual diet Discharge Activity: Increase activity as tolerated Patient Instructions: Depression (DC), Your Baby (DC), Expression, Collection and Storage of Breast Milk (DC), How to Hold and Breastfeed Your Baby (DC), and Nipple Soreness (DC), Caring for Your Breastfed Baby (DC), Breast Care for the Mother (DC), OB Discharge Report, Opioid Safety, Abnormal Bleeding Discharge Attestations ORTHOPHOTO TECH/DRAFTSMAN Time Spent in Discharge Care*: less than 30 min Coding Level of Care Code Acute Code for Chg Fwd Diagnoses Vaginal delivery O80
[2025-03-15 18:09] LABS: High Risk PP Hemorrhage BBK Notified
== END 2025-03-15 12:00 | disposition home or self-care (01) | DRG 768 ==
PROVIDERS: Admitting Provider Obstetrics & Gynecology; Family Provider Nurse Practitioner Family; PCP Nurse Practitioner Family; Visit Provider Obstetrics & Gynecology
DX: O70.20 Third degree perineal laceration during delivery, unspecified (principal); Z37.0 Single live birth; O99.02 Anemia complicating childbirth; D64.9 Anemia, unspecified; Z3A.39 39 weeks gestation of pregnancy; K21.9 Gastro-esophageal reflux disease without esophagitis; O75.89 Other specified complications of labor and delivery
CPT/HCPCS: 36415; 51702; 59025; 59409; 85025; 85027; 86850; 86900; 96374; 96376; 99211; J2590; J2795; J3010; J7120; J7121; J9999

== ENCOUNTER → 2025-05-02 10:35 | Outpatient (BNVA) | payer BC, MEDICAID, SELFPAY | PROVIDERS: Family Provider Nurse Practitioner Family; PCP Nurse Practitioner Family; Visit Provider Nurse Practitioner Women's Health | DX: R87.610 Atypical squamous cells of undetermined significance on cytologic smear of cervix (ASC-US) (principal); R87.810 Cervical high risk human papillomavirus (HPV) DNA test positive | CPT/HCPCS: 87624 ==

== ENCOUNTER → 2025-05-28 13:50 | Outpatient (BNVA) | payer BC, MEDICAID, SELFPAY | PROVIDERS: Family Provider Nurse Practitioner Family; PCP Nurse Practitioner Family; Visit Provider Obstetrics & Gynecology | DX: R87.610 Atypical squamous cells of undetermined significance on cytologic smear of cervix (ASC-US) (principal); R87.810 Cervical high risk human papillomavirus (HPV) DNA test positive; Z87.42 Personal history of other diseases of the female genital tract | CPT/HCPCS: 81025 ==